=== PATIENT | female | born 1945 | race American Indian/Alaskan Native ===

== ENCOUNTER 2017-01-14 09:36 | Inpatient (IN) | payer MEDICARE, OTHER ==
--- NOTE | 2017-01-14 10:22 | XRay Report ---
AP CHEST: HISTORY: Shortness of breath AP view of the chest demonstrates a normal mediastinal and cardiac contour with clear lungs and normal bony and soft tissue structures. IMPRESSION: Unremarkable AP chest.
[2017-01-14] MEDS ORDERED: NACL 0.9% 1000 ML 1,000 ML IV ONE ×2 (10:26→12:06)
[2017-01-14 10:55] LABS: Basophils % (Auto) 0.4 % (0.0-1.8); Eosinophils % (Auto) 0.7 % (0.0-4.3); Hematocrit 37.9 % (30.3-42.9); Hemoglobin 11.8 gm/dl (10.1-14.3); Mean Corpuscular HGB Conc 31 % (30-34); Mean Corpuscular Hemoglobin 28 pg (28-32); Mean Corpuscular Volume 91 fl (79-97); Platelet Count 319 K/mm3 (140-440); Red Blood Count 4.19 M/mm3 (3.65-5.03); White Blood Count 11.9 K/mm3 (4.5-11.0)
[2017-01-14 11:16] LABS: INR 0.88 (0.87-1.13)
[2017-01-14 11:17] LABS: Partial Thromboplastin Time 27.6 Sec. (24.2-36.6)
[2017-01-14 11:26] LABS: Anion Gap 24 mmol/L; BUN/Creatinine Ratio 22; Blood Urea Nitrogen 26 mg/dL (7-17); Calcium 9.4 mg/dL (8.4-10.2); Carbon Dioxide 19 mmol/L (22-30); Chloride 103.1 mmol/L (98-107); Glucose 144 mg/dL (65-100); Potassium 4.6 mmol/L (3.6-5.0); Sodium 141 mmol/L (137-145)
[2017-01-14 11:33] LABS: Creatine Kinase MB 3.2 ng/mL (0.0-4.0)
[2017-01-14 11:36] LABS: Alanine Aminotransferase 8 units/L (7-56); Albumin 4.3 g/dL (3.9-5); Albumin/Globulin Ratio 1.3 %; Alkaline Phosphatase 83 units/L (35-129); Creatine Kinase 170 units/L (30-135); Total Protein 7.5 g/dL (6.3-8.2)
[2017-01-14 11:38] LABS: Bilirubin,Direct < 0.2 mg/dL (0-0.2)
[2017-01-14] MEDS ORDERED: NACL ONE (12:16)
--- NOTE | 2017-01-14 12:56 | Emergency Department Report ---
ED General Adult HPI - General Chief complaint: Dyspnea/Respdistress Stated complaint: AMBROSE Time Seen by Provider: 01/14/17 10:07 Source: patient, family, EMS Mode of arrival: Stretcher Limitations: No Limitations - History of Present Illness Initial comments: The patient states that she has a history of asthma and that her shortness of breath began this morning. She was felt to be frankly wheezing by paramedics who transported her after giving her 10 mg of albuterol via nebulizer, 2 g of mag and 125 of Solu-Medrol. She arrived at the hospital stating that She has never been to the hospital except for childbirth. It looks like she came to the emergency department once but was not seen it appears. In any case she has persistent wheezing. She denies chest pain fever chills or cough. She states that she was fine yesterday. I would speculate that the patient has a tendency to minimize her symptoms as it appears she still clearly does not want to stay in the hospital. However, she is noted to have persistent wheezing and a heart rate in the 120s. -: hour(s) Severity scale (0 -10): 0 Associated Symptoms: denies other symptoms, shortness of breath Treatments Prior to Arrival: none - Related Data Allergies Allergy/AdvReac Type Severity Reaction Status Date / Time No Known Allergies Allergy Unverified 12/23/15 14:21 ED Review of Systems ROS: Stated complaint: AMBROSE Other details as noted in HPI Constitutional: denies: chills, fever Eyes: denies: eye pain, eye discharge, vision change ENT: denies: ear pain, throat pain Respiratory: shortness of breath, wheezing. denies: cough Cardiovascular: denies: chest pain, palpitations Endocrine: no symptoms reported Gastrointestinal: denies: abdominal pain, nausea, diarrhea Genitourinary: denies: urgency, dysuria, discharge Musculoskeletal: denies: back pain, joint swelling, arthralgia Skin: denies: rash, lesions Neurological: denies: headache, weakness, paresthesias Psychiatric: denies: anxiety, depression Hematological/Lymphatic: denies: easy bleeding, easy bruising ED Past Medical Hx - Past Medical History Hx Hypertension: Yes Hx Diabetes: Yes Hx Asthma: Yes Additional medical history: chronic back pain - Social History Smoking Status: Never Smoker Substance Use Type: None ED Physical Exam - General Limitations: No Limitations General appearance: alert, in no apparent distress - Head Head exam: Present: atraumatic, normocephalic - Eye Eye exam: Present: normal appearance. Absent: scleral icterus - ENT ENT exam: Present: mucous membranes moist - Neck Neck exam: Present: normal inspection. Absent: tenderness, meningismus - Respiratory Respiratory exam: Present: wheezes (bilateral). Absent: respiratory distress, accessory muscle use, decreased breath sounds - Cardiovascular Cardiovascular Exam: Present: normal rhythm, tachycardia. Absent: systolic murmur, diastolic murmur, rubs, gallop - GI/Abdominal GI/Abdominal exam: Present: soft, normal bowel sounds. Absent: distended, tenderness, guarding, rebound, rigid - Extremities Exam Extremities exam: Present: normal inspection - Back Exam Back exam: Present: normal inspection. Absent: CVA tenderness (R), CVA tenderness (L) - Neurological Exam Neurological exam: Present: alert, oriented X3, CN II-XII intact. Absent: motor sensory deficit - Psychiatric Psychiatric exam: Present: normal affect, normal mood - Skin Skin exam: Present: warm, dry, intact, normal color. Absent: rash ED Course Vital Signs 01/14/17 01/14/17 01/14/17 09:53 09:54 13:53 Pulse Rate 133 H Pulse Rate [ 123 H Anterior Bilateral Throughout] Respiratory 25 H 16 Rate Respiratory 22 Rate [Anterior Bilateral Throughout] Blood Pressure 127/55 [Left] O2 Sat by Pulse 96 96 Oximetry 01/14/17 14:33 Pulse Rate Pulse Rate [ 122 H Anterior Bilateral Throughout] Respiratory Rate Respiratory 20 Rate [Anterior Bilateral Throughout] Blood Pressure [Left] O2 Sat by Pulse Oximetry - Reevaluation(s) Reevaluation #1: The patient's tachycardia might be related to beta agonists, I decided to broaden her workup to include a lactic acid and a D dimer. Both CTs were substantially positive. Therefore I decided to obtain a CT angio and study of her abdomen and pelvis. Results are yet pending. She was treated with empiric antibiotics for an unknown source infection. Urinalysis is pending. 01/14/17 12:57 ED Medical Decision Making - Lab Data Result diagrams: 01/14/17 10:41 01/14/17 10:41 Laboratory Results - last 24 hr 01/14/17 01/14/17 01/14/17 10:41 10:41 10:41 WBC 11.9 H RBC 4.19 Hgb 11.8 Hct 37.9 MCV 91 MCH 28 MCHC 31 RDW 14.0 Plt Count 319 Lymph % (Auto) 6.8 L [place] % (Auto) 4.7 Eos % (Auto) 0.7 Baso % (Auto) 0.4 Lymph # 0.8 L [place] # 0.6 Eos # 0.1 Baso # 0.0 Seg Neutrophils % 87.4 H Seg Neutrophils # 10.4 H PT 12.4 INR 0.88 APTT 27.6 D-Dimer 1256.11 H Sodium 141 Potassium 4.6 Chloride 103.1 Carbon Dioxide 19 L Anion Gap 24 BUN 26 H Creatinine 1.2 Estimated GFR 53 BUN/Creatinine Ratio 22 Glucose 144 H Lactic Acid Calcium 9.4 Magnesium Total Bilirubin Direct Bilirubin AST ALT Alkaline Phosphatase Total Creatine Kinase CK-MB (CK-2) CK-MB (CK-2) Rel Index Troponin T < 0.010 NT-Pro-B Natriuret Pep Total Protein Albumin Albumin/Globulin Ratio 01/14/17 01/14/17 10:41 10:41 WBC RBC Hgb Hct MCV MCH MCHC RDW Plt Count Lymph % (Auto) [place] % (Auto) Eos % (Auto) Baso % (Auto) Lymph # [place] # Eos # Baso # Seg Neutrophils % Seg Neutrophils # PT INR APTT D-Dimer Sodium Potassium Chloride Carbon Dioxide Anion Gap BUN Creatinine Estimated GFR BUN/Creatinine Ratio Glucose Lactic Acid 3.40 H* Calcium Magnesium 2.90 H Total Bilirubin 0.20 Direct Bilirubin < 0.2 AST 17 ALT 8 Alkaline Phosphatase 83 Total Creatine Kinase 170 H CK-MB (CK-2) 3.2 CK-MB (CK-2) Rel Index 1.8 Troponin T NT-Pro-B Natriuret Pep 71.67 Total Protein 7.5 Albumin 4.3 Albumin/Globulin Ratio 1.3 - EKG Data -: EKG Interpreted by Me EKG shows normal: sinus rhythm, axis, intervals, QRS complexes, ST-T waves Rate: tachycardia - EKG Data Interpretation: nonspecific ST-T wave slime, other (somewhat low voltage) - Radiology Data Radiology results: report reviewed interpreted by me: Chest x-ray shows no acute process CT studies were normal. Critical Care Time: Yes Critical care time in (mins) excluding proc time.: 60 Critical care attestation.: If time is entered above; I have spent that time in minutes in the direct care of this critically ill patient, excluding procedure time. ED Disposition Clinical Impression: Elevated d-dimer, Elevated lactic acid level Status asthmaticus Qualifiers: Asthma severity: severe Asthma persistence: persistent Qualified Code(s): J45.52 - Severe persistent asthma with status asthmaticus Disposition: OP ADMIT IP TO THIS HOSP Is pt being admited?: Yes Does the pt Need Aspirin: Yes Condition: Stable Referrals: PEDRO LUIS CORONADO MD [Primary Care Provider] - 3-5 Days Time of Disposition: 14:52
[2017-01-14] MEDS ORDERED: VANCOMYCIN PHARMACY TO DOSE IV SCH (13:00)
[2017-01-14] MEDS ORDERED: ZOSYN/NS 3.375GM/50ML 3.375 GM/50 ML BAG IV SCH (13:00)
[2017-01-14] MEDS ORDERED: DUONEB *Not for PRN Use IH ONE (13:33)
[2017-01-14 13:44] LABS: Bilirubin,Urine NEG (Negative); Blood,Urine NEG (Negative); Ketones,Urine NEG (Negative); Leukocyte Esterase,Urine TR (Negative); Mucus,Urine FEW /HPF; Nitrite,Urine NEG (Negative); Protein,Urine <15 mg/dL mg/dL (Negative); Urobilinogen,Urine < 2.0 mg/dL (<2.0)
[2017-01-14] MEDS: ZOSYN/NS 3.375GM/50ML 3.375 GM/50 ML BAG IV SCH ×2 (13:44→21:51)
--- NOTE | 2017-01-14 13:49 | Cat Scan Report ---
CTA CHEST: History: Difficulty in breathing. Technique: Helical CT following IV contrast. Pulmonary embolus protocol. Sagittal and coronal reformatted images. Rotational MIP images. Findings: Contrast bolus is satisfactory. No pulmonary embolus is identified. The thyroid gland, tracheobronchial tree, esophagus, heart, pericardium, mediastinal vessels, lung gray and bony thorax are unremarkable. Impression: No evidence for pulmonary embolus. Unremarkable CT chest with contrast.
--- NOTE | 2017-01-14 13:50 | Cat Scan Report ---
CT SCAN OF THE ABDOMEN AND PELVIS WITH CONTRAST: HISTORY: Difficulty in breathing, elevated lactic acid and d-dimer. TECHNIQUE: Helical CT in 1.25mm intervals following IV contrast. Sagittal and coronal reconstructions. FINDINGS: The liver is normal in size and is without focal defect. No gallstones or biliary dilatation are noted. The spleen and pancreas demonstrate a normal size and attenuation with no evidence of abnormal mass. The kidneys are normal in size and position with no evidence of hydronephrosis or mass. The adrenal glands are normal. There is no intestinal obstruction or ascites. Normal appendix. The abdominal aorta is normal. The uterus and adnexa are within normal limits. There is no evidence of peritoneal air or fluid. There is no evidence of any abnormal masses or fluid collections within the pelvis. No adenopathy is identified. The bladder is normal. IMPRESSION: Unremarkable CT scan of the abdomen and pelvis with contrast. No acute process is noted.
[2017-01-14 14:10] LABS: ISTAT Base Excess -11; ISTAT HCO3 15.8; ISTAT PCO2 32.2 (35-45); ISTAT PO2 48 (80-105); ISTAT SO2 80; ISTAT TCO2 17
[2017-01-14] MEDS: VANCOMYCIN 1,500 MG in NACL 0.9% 500 ML 500 ML IV SCH (14:21)
[2017-01-14] MEDS ORDERED: BABY ASPIRIN PO ONE (14:54)
--- NOTE | 2017-01-14 16:19 | History and Physical Report ---
History of Present Illness Date of examination: 01/14/17 Date of admission: 01/14/17 Chief complaint: Increasing SOB and wheezing for 1 day History of present illness: History of Present Illness: 71 y/o female with pmh of HTn t2dm LBP and Asthma comes in for increasing SOB and wheezing since AM.Cough productive of mucoid sputm.No fever or chills.No intubations in the past.No exacerbating or relieving factors.Notrelieved by home inhalers.Came by EMS.Persistent wheezing in spite of neb treatments in ER - Past Medical History Hx Hypertension: Yes Hx Diabetes: Yes Hx Asthma: Yes Additional medical history: chronic back pain - Social History Smoking Status: Never Smoker Substance Use Type: None Surg Hx N/A Fam Hx Htn Review of Systems Stated complaint: AMBROSE Other details as noted in HPI Constitutional: denies: chills, fever Eyes: denies: eye pain, eye discharge, vision change ENT: denies: ear pain, throat pain Respiratory: shortness of breath, wheezing. denies: cough Cardiovascular: denies: chest pain, palpitations Endocrine: no symptoms reported Gastrointestinal: denies: abdominal pain, nausea, diarrhea Genitourinary: denies: urgency, dysuria, discharge Musculoskeletal: denies: back pain, joint swelling, arthralgia Skin: denies: rash, lesions Neurological: denies: headache, weakness, paresthesias Psychiatric: denies: anxiety, depression Hematological/Lymphatic: denies: easy bleeding, easy bruising Medications and Allergies Allergies Allergy/AdvReac Type Severity Reaction Status Date / Time No Known Allergies Allergy Unverified 12/23/15 14:21 Active Meds: Active Medications Sodium Chloride (Nacl 0.9% 1000 Ml) 1,000 mls @ 125 mls/hr IV ONCE ONE Stop: 01/14/17 18:25 Last Admin: 01/14/17 11:18 Dose: 125 mls/hr Piperacillin Sod/Tazobactam Sod (Zosyn/Ns 3.375gm/50ml) 3.375 gm in 50 mls @ 100 mls/hr IV Q8H [facility] Last Admin: 01/14/17 13:44 Dose: 100 mls/hr Vancomycin HCl 1,500 mg/ (Sodium Chloride) 515 mls @ 257.5 mls/hr IV Q24H [facility] Last Admin: 01/14/17 14:21 Dose: 257.5 mls/hr Vancomycin HCl (Vancomycin Pharmacy To Dose) 1 each IV PKCONSULT JOSE PRN Reason: Protocol Exam - Physical Exam Narrative exam: In mild distress - Constitutional Vitals: Temp Pulse Resp BP Pulse Ox 122 H 20 127/55 96 01/14/17 14:33 01/14/17 14:33 01/14/17 09:53 01/14/17 09:54 General appearance: Present: mild distress, well-nourished - EENT Eyes: Present: PERRL ENT: hearing intact, clear oral mucosa - Neck Neck: Present: supple, normal ROM - Respiratory Respiratory effort: normal Respiratory: bilateral: CTA, wheezing - Cardiovascular Heart rate: 80 Rhythm: regular Heart Sounds: Present: S1 & S2. Absent: rub, click - Extremities Extremities: no ischemia, pulses intact, pulses symmetrical, No edema Peripheral Pulses: within normal limits - Abdominal General gastrointestinal: Present: soft, non-tender, non-distended, normal bowel sounds Female genitourinary: Present: normal - Rectal Rectal Exam: deferred - Integumentary Integumentary: Present: clear, warm, dry - Musculoskeletal Musculoskeletal: gait normal, strength equal bilaterally - Psychiatric Psychiatric: appropriate mood/affect, intact judgment & insight - Neurologic Neurologic: CNII-XII intact, moves all extremities - Allied Health Allied health notes reviewed: nursing, case management Results - Labs CBC & Chem 7: 01/15/17 04:37 01/15/17 04:37 Labs: Laboratory Last Values WBC 11.9 K/mm3 (4.5-11.0) H 01/14/17 10:41 RBC 4.19 M/mm3 (3.65-5.03) 01/14/17 10:41 Hgb 11.8 gm/dl (10.1-14.3) 01/14/17 10:41 Hct 37.9 % (30.3-42.9) 01/14/17 10:41 MCV 91 fl (79-97) 01/14/17 10:41 MCH 28 pg (28-32) 01/14/17 10:41 MCHC 31 % (30-34) 01/14/17 10:41 RDW 14.0 % (13.2-15.2) 01/14/17 10:41 Plt Count 319 K/mm3 (140-440) 01/14/17 10:41 Lymph % (Auto) 6.8 % (13.4-35.0) L 01/14/17 10:41 [place] % (Auto) 4.7 % (0.0-7.3) 01/14/17 10:41 Eos % (Auto) 0.7 % (0.0-4.3) 01/14/17 10:41 Baso % (Auto) 0.4 % (0.0-1.8) 01/14/17 10:41 Lymph # 0.8 K/mm3 (1.2-5.4) L 01/14/17 10:41 [place] # 0.6 K/mm3 (0.0-0.8) 01/14/17 10:41 Eos # 0.1 K/mm3 (0.0-0.4) 01/14/17 10:41 Baso # 0.0 K/mm3 (0.0-0.1) 01/14/17 10:41 Seg Neutrophils % 87.4 % (40.0-70.0) H 01/14/17 10:41 Seg Neutrophils # 10.4 K/mm3 (1.8-7.7) H 01/14/17 10:41 PT 12.4 Sec. (12.2-14.9) 01/14/17 10:41 INR 0.88 (0.87-1.13) 01/14/17 10:41 APTT 27.6 Sec. (24.2-36.6) 01/14/17 10:41 D-Dimer 1256.11 ng/mlDDU (0-234) H 01/14/17 10:41 POC ABG pH 7.300 (7.35-7.45) L 01/14/17 13:49 POC ABG pCO2 32.2 (35-45) L 01/14/17 13:49 POC ABG pO2 48 (80-105) L 01/14/17 13:49 POC ABG HCO3 15.8 01/14/17 13:49 POC ABG Total CO2 17 01/14/17 13:49 POC ABG O2 Sat 80 01/14/17 13:49 POC ABG Base Excess -11 01/14/17 13:49 FiO2 35 % 01/14/17 13:49 Sodium 141 mmol/L (137-145) 01/14/17 10:41 Potassium 4.6 mmol/L (3.6-5.0) 01/14/17 10:41 Chloride 103.1 mmol/L (98-107) 01/14/17 10:41 Carbon Dioxide 19 mmol/L (22-30) L 01/14/17 10:41 Anion Gap 24 mmol/L 01/14/17 10:41 BUN 26 mg/dL (7-17) H 01/14/17 10:41 Creatinine 1.2 mg/dL (0.7-1.2) 01/14/17 10:41 Estimated GFR 53 ml/min 01/14/17 10:41 BUN/Creatinine Ratio 22 % 01/14/17 10:41 Glucose 144 mg/dL (65-100) H 01/14/17 10:41 Lactic Acid 3.40 mmol/L (0.7-2.0) H* 01/14/17 10:41 Calcium 9.4 mg/dL (8.4-10.2) 01/14/17 10:41 Magnesium 2.90 mg/dL (1.7-2.3) H 01/14/17 10:41 Total Bilirubin 0.20 mg/dL (0.1-1.2) 01/14/17 10:41 Direct Bilirubin < 0.2 mg/dL (0-0.2) 01/14/17 10:41 AST 17 units/L (5-40) 01/14/17 10:41 ALT 8 units/L (7-56) 01/14/17 10:41 Alkaline Phosphatase 83 units/L (35-129) 01/14/17 10:41 Total Creatine Kinase 170 units/L (30-135) H 01/14/17 10:41 CK-MB (CK-2) 3.2 ng/mL (0.0-4.0) 01/14/17 10:41 CK-MB (CK-2) Rel Index 1.8 (0-4) 01/14/17 10:41 Troponin T < 0.010 ng/mL (0.00-0.029) 01/14/17 10:41 NT-Pro-B Natriuret Pep 71.67 pg/mL (0-900) 01/14/17 10:41 Total Protein 7.5 g/dL (6.3-8.2) 01/14/17 10:41 Albumin 4.3 g/dL (3.9-5) 01/14/17 10:41 Albumin/Globulin Ratio 1.3 % 01/14/17 10:41 Urine Color Yellow (Yellow) 01/14/17 13:25 Urine Turbidity Clear (Clear) 01/14/17 13:25 Urine pH 5.0 (5.0-7.0) 01/14/17 13:25 Ur Specific [place] 1.016 (1.003-1.030) 01/14/17 13:25 Urine Protein <15 mg/dl mg/dL (Negative) 01/14/17 13:25 Urine Glucose (UA) Neg mg/dL (Negative) 01/14/17 13:25 Urine Ketones Neg mg/dL (Negative) 01/14/17 13:25 Urine Blood Neg (Negative) 01/14/17 13:25 Urine Nitrite Neg (Negative) 01/14/17 13:25 Urine Bilirubin Neg (Negative) 01/14/17 13:25 Urine Urobilinogen < 2.0 mg/dL (<2.0) 01/14/17 13:25 Ur Leukocyte Esterase Tr (Negative) 01/14/17 13:25 Urine WBC (Auto) 1.0 /HPF (0.0-6.0) 01/14/17 13:25 Urine RBC (Auto) 2.0 /HPF (0.0-6.0) 01/14/17 13:25 U Epithel Cells (Auto) 1.0 /HPF (0-13.0) 01/14/17 13:25 Urine Mucus Few /HPF 01/14/17 13:25 Short CBC 01/14/17 01/15/17 Range/Units 10:41 04:37 WBC 11.9 H 11.1 H (4.5-11.0) K/mm3 Hgb 11.8 10.6 (10.1-14.3) gm/dl Hct 37.9 33.0 (30.3-42.9) % Plt Count 319 292 (140-440) K/mm3 BMP 01/14/17 01/15/17 10:41 04:37 Sodium 141 141 Potassium 4.6 5.2 H Chloride 103.1 108.0 H Carbon Dioxide 19 L 21 L BUN 26 H 27 H Creatinine 1.2 1.2 Glucose 144 H 134 H Calcium 9.4 9.0 Cardiac Enzymes 01/14/17 01/14/17 Range/Units 10:41 10:41 Total Creatine Kinase 170 H (30-135) units/L CK-MB (CK-2) 3.2 (0.0-4.0) ng/mL Troponin T < 0.010 (0.00-0.029) ng/mL Liver Function 01/14/17 01/15/17 Range/Units 10:41 04:37 Total Bilirubin 0.20 0.20 (0.1-1.2) mg/dL Direct Bilirubin < 0.2 (0-0.2) mg/dL AST 17 17 (5-40) units/L ALT 8 9 (7-56) units/L Alkaline Phosphatase 83 73 (35-129) units/L Albumin 4.3 3.8 L (3.9-5) g/dL Urine 01/14/17 Range/Units 13:25 Urine Color Yellow (Yellow) Urine pH 5.0 (5.0-7.0) Ur Specific [place] 1.016 (1.003-1.030) Urine Protein <15 mg/dl (Negative) mg/dL Urine Glucose (UA) Neg (Negative) mg/dL - Imaging and Cardiology EKG: report reviewed (NSR) Chest x-ray: report reviewed (NAF) CT scan - chest: report reviewed (NAF No PE) Assessment and Plan Advance Directives: Yes (Full code) VTE prophylaxis?: Chemical Plan of care discussed with patient/family: Yes - Patient Problems (1) Acute respiratory failure with hypoxia Current Visit: Yes Status: Acute Plan to address problem: Patient hypoxic.NIPPV as required (2) Status asthmaticus Current Visit: Yes Status: Acute Qualifiers: Asthma severity: severe Asthma persistence: persistent Qualified Code(s) : J45.52 - Severe persistent asthma with status asthmaticus Plan to address problem: IV solumedrol Neb treatments q6 RTC and q3 prn and IV Levaquin (3) Elevated lactic acid level Current Visit: Yes Status: Acute Plan to address problem: Septic?? IV fluids and IV Levaquin for now Not Hypotensive (4) T2DM (type 2 diabetes mellitus) Current Visit: Yes Status: Chronic Qualifiers: Diabetes mellitus complication status: without complication Plan to address problem: Not on any meds.Coverage for now.Check A1c. Add Metformin (5) Lumbago Current Visit: Yes Status: Chronic Qualifiers: Chronicity: chronic Plan to address problem: Analgesics as necessary (6) DVT prophylaxis Current Visit: Yes Status: Acute Plan to address problem: on Lovenox
[2017-01-14] MEDS ORDERED: DULCOLAX PR PRN (16:20)
[2017-01-14] MEDS ORDERED: ZOFRAN IV PRN (16:20)
[2017-01-14] MEDS ORDERED: MILK OF MAGNESIA PO PRN (16:20)
[2017-01-14] MEDS ORDERED: TYLENOL PO PRN (16:20)
[2017-01-14] MEDS ORDERED: MORPHINE IV PRN (16:20)
[2017-01-14] MEDS ORDERED: PERCOCET 5/325 PO PRN (16:20)
[2017-01-14] MEDS ORDERED: DUONEB *Not for PRN Use IH (16:22)
[2017-01-14] MEDS ORDERED: PROVENTIL IH PRN (16:25)
[2017-01-14] MEDS: DUONEB *Not for PRN Use IH SCH ×2 (16:44→21:19)
[2017-01-14] MEDS: LEVAQUIN 750MG/150ML 750 MG/150 ML BAG IV SCH ×2 (16:54→18:43)
[2017-01-14] MEDS ORDERED: LEVAQUIN 750MG/150ML 750 MG/150 ML BAG IV SCH (17:00)
[2017-01-14] MEDS: PEPCID IV SCH (21:50)
[2017-01-14] MEDS ORDERED: PEPCID IV SCH (22:00)
[2017-01-15] MEDS: DUONEB *Not for PRN Use IH SCH ×4 (03:36→20:44)
[2017-01-15] MEDS: ZOSYN/NS 3.375GM/50ML 3.375 GM/50 ML BAG IV SCH ×3 (04:53→22:12)
[2017-01-15 05:12] LABS: Hemoglobin 10.6 gm/dl (10.1-14.3); Mean Corpuscular HGB Conc 32 % (30-34); Mean Corpuscular Hemoglobin 28 pg (28-32); Mean Corpuscular Volume 89 fl (79-97); Platelet Count 292 K/mm3 (140-440); Red Blood Count 3.73 M/mm3 (3.65-5.03); Red Cell Distribution Width 13.5 % (13.2-15.2); White Blood Count 11.1 K/mm3 (4.5-11.0)
[2017-01-15 05:33] LABS: Albumin 3.8 g/dL (3.9-5); Albumin/Globulin Ratio 1.3 %; Bilirubin,Total 0.2 mg/dL (0.1-1.2); Potassium 5.2 mmol/L (3.6-5.0); Total Protein 6.8 g/dL (6.3-8.2)
[2017-01-15] MEDS ORDERED: GLUCOPHAGE PO SCH (08:00)
[2017-01-15 08:25] LABS: Anisocytosis 1+; Basophils % (Manual) 0 % (0.0-1.8); Blastocytes % (Manual) 0 %; Eosinophils % (Manual) 0 % (0.0-4.3)
[2017-01-15] MEDS ORDERED: KIONEX PO ONE (08:25)
[2017-01-15 08:26] LABS: Hypochromasia Few
[2017-01-15 08:27] LABS: Diff Status Complete; Platelet Estimate Consistent w Auto
[2017-01-15] MEDS: NOVOLOG SUB-Q SCH ×4 (08:44→23:31)
[2017-01-15] MEDS ORDERED: LOVENOX SUB-Q SCH (10:00)
[2017-01-15] MEDS: LOVENOX SUB-Q SCH (10:33)
[2017-01-15] MEDS: PEPCID IV SCH ×2 (10:34→22:10)
[2017-01-15] MEDS: VANCOMYCIN 1,500 MG in NACL 0.9% 500 ML 500 ML IV SCH (13:49)
--- NOTE | 2017-01-15 14:17 | Progress Note ---
Assessment and Plan Assessment and plan: Patient is a 71-year-old female with history of asthma who presents to the hospital with complaint of shortness of breath that began this a.m. prior to admission. The patient reports that she was not usual state of health and has not been hospitalized ever in the past before. She denies any sick contacts she states that she's been around people who have been coughing and hacking. She denies any prior admissions as noted above. She also denies any fever nausea vomiting or diarrhea she denies any chest pain. On admission she was noted to have persistent wheezing with a heart rate in the 120s. Acute hypoxic respiratory failure * Likely secondary to asthma exacerbation. Continue present treatment as noted continue IV Solu-Medrol * We'll continue Zosyn in case there is underlying bronchitis * discontinue vancomycin Asthma exacerbation with status asthmaticus on admission * Nebs, LABA, LIZETH. Taper steroids. Lactic acidosis * Improvement continue gentle hydration Hyperkalemia * We'll give Kayexalate and recheck in a.m. SIRS * Likely secondary to respiratory failure no organ dysfunction noted Elevated d-dimer * No pulmonary embolism this could be secondary to the asthma exacerbation. Nonetheless we'll check an ultrasound to rule out DVT Metabolic acidosis * Supportive care with IV fluids we'll discontinue metformin * Type 2 diabetes mellitus * Sliding scale [place] Appropriate pain control * DVT/ GI prophylaxis Plan of care discussed with patient and family and they're agreeable treatment. History Interval history: Patient seen and examined in no acute distress she continues to wheeze but denies any chest pain, nausea vomiting diarrhea still with some shortness of breath denies any fever. Denies any recent sick contacts. Hospitalist Physical - Physical exam Narrative exam: VITAL SIGNS: Reviewed. GENERAL: The patient appeared well nourished and normally developed. Vital signs as documented. HEAD: No signs of head trauma. EYES: Pupils are equal. Extraocular motions intact. EARS: Hearing grossly intact. MOUTH: Oropharynx is normal. NECK: No adenopathy, no JVD. CHEST: Chest with wheeze and bilateral breath sounds expiratory moderate inspiratory CARDIAC: Regular rate and rhythm. S1 and S2, without murmurs, gallops, or rubs. VASCULAR: No Edema. Peripheral pulses normal and equal in all extremities. ABDOMEN: Soft, without detectable tenderness. No sign of distention. No rebound or guarding, and no masses palpated. Bowel Sounds normal. MUSCULOSKELETAL: Good range of motion of all major joints. Extremities without clubbing, cyanosis or edema. NEUROLOGIC EXAM: Alert and oriented x 3. No focal sensory or strength deficits. Speech normal. Follows commands. PSYCHIATRIC: Mood normal. SKIN: No rash or lesions. - Constitutional Vitals: Temp Pulse Resp BP Pulse Ox 98.7 F 114 H 20 128/72 95 01/15/17 07:35 01/15/17 07:35 01/15/17 07:35 01/15/17 07:35 01/15/17 07:35 General appearance: Present: mild distress, well-nourished Results - Labs CBC & Chem 7: 01/15/17 04:37 01/15/17 04:37 Labs: Laboratory Last Values WBC 11.1 K/mm3 (4.5-11.0) H 01/15/17 04:37 RBC 3.73 M/mm3 (3.65-5.03) 01/15/17 04:37 Hgb 10.6 gm/dl (10.1-14.3) 01/15/17 04:37 Hct 33.0 % (30.3-42.9) 01/15/17 04:37 MCV 89 fl (79-97) 01/15/17 04:37 MCH 28 pg (28-32) 01/15/17 04:37 MCHC 32 % (30-34) 01/15/17 04:37 RDW 13.5 % (13.2-15.2) 01/15/17 04:37 Plt Count 292 K/mm3 (140-440) 01/15/17 04:37 Lymph % (Auto) 6.8 % (13.4-35.0) L 01/14/17 10:41 [place] % (Auto) 4.7 % (0.0-7.3) 01/14/17 10:41 Eos % (Auto) 0.7 % (0.0-4.3) 01/14/17 10:41 Baso % (Auto) 0.4 % (0.0-1.8) 01/14/17 10:41 Lymph # 0.8 K/mm3 (1.2-5.4) L 01/14/17 10:41 [place] # 0.6 K/mm3 (0.0-0.8) 01/14/17 10:41 Eos # 0.1 K/mm3 (0.0-0.4) 01/14/17 10:41 Baso # 0.0 K/mm3 (0.0-0.1) 01/14/17 10:41 Add Manual Diff Complete 01/15/17 04:37 Total Counted 100 01/15/17 04:37 Seg Neutrophils % [place] 01/15/17 04:37 Seg Neuts % (Manual) 69.0 % (40.0-70.0) 01/15/17 04:37 Band Neutrophils % 11.0 % 01/15/17 04:37 Lymphocytes % (Manual) 16.0 % (13.4-35.0) 01/15/17 04:37 Reactive Lymphs % (Man) 0 % 01/15/17 04:37 Monocytes % (Manual) 4.0 % (0.0-7.3) 01/15/17 04:37 Eosinophils % (Manual) 0 % (0.0-4.3) 01/15/17 04:37 Basophils % (Manual) 0 % (0.0-1.8) 01/15/17 04:37 Metamyelocytes % 0 % 01/15/17 04:37 Myelocytes % 0 % 01/15/17 04:37 Promyelocytes % 0 % 01/15/17 04:37 Blast Cells % 0 % 01/15/17 04:37 Nucleated RBC % Not Reportable 01/15/17 04:37 Seg Neutrophils # 10.4 K/mm3 (1.8-7.7) H 01/14/17 10:41 Seg Neutrophils # Man 7.7 K/mm3 (1.8-7.7) 01/15/17 04:37 Band Neutrophils # 1.2 K/mm3 01/15/17 04:37 Lymphocytes # (Manual) 1.8 K/mm3 (1.2-5.4) 01/15/17 04:37 Abs React Lymphs (Man) 0.0 K/mm3 01/15/17 04:37 Monocytes # (Manual) 0.4 K/mm3 (0.0-0.8) 01/15/17 04:37 Eosinophils # (Manual) 0.0 K/mm3 (0.0-0.4) 01/15/17 04:37 Basophils # (Manual) 0.0 K/mm3 (0.0-0.1) 01/15/17 04:37 Metamyelocytes # 0.0 K/mm3 01/15/17 04:37 Myelocytes # 0.0 K/mm3 01/15/17 04:37 Promyelocytes # 0.0 K/mm3 01/15/17 04:37 Blast Cells # 0.0 K/mm3 01/15/17 04:37 WBC Morphology Not Reportable 01/15/17 04:37 Hypersegmented Neuts Not Reportable 01/15/17 04:37 Hyposegmented Neuts Not Reportable 01/15/17 04:37 Hypogranular Neuts Not Reportable 01/15/17 04:37 Smudge Cells Not Reportable 01/15/17 04:37 Toxic Granulation Not Reportable 01/15/17 04:37 Toxic Vacuolation Not Reportable 01/15/17 04:37 Dohle Bodies Not Reportable 01/15/17 04:37 Pelger-Huet Anomaly Not Reportable 01/15/17 04:37 Seth Rods Not Reportable 01/15/17 04:37 Platelet Estimate Consistent w auto 01/15/17 04:37 Clumped Platelets Not Reportable 01/15/17 04:37 Plt Clumps, EDTA Not Reportable 01/15/17 04:37 Large Platelets Not Reportable 01/15/17 04:37 Giant Platelets Not Reportable 01/15/17 04:37 Platelet Satelliting Not Reportable 01/15/17 04:37 Plt Morphology Comment Not Reportable 01/15/17 04:37 RBC Morphology Not Reportable 01/15/17 04:37 Dimorphic RBCs Not Reportable 01/15/17 04:37 Polychromasia Not Reportable 01/15/17 04:37 Hypochromasia Few 01/15/17 04:37 Poikilocytosis Not Reportable 01/15/17 04:37 Anisocytosis 1+ 01/15/17 04:37 Microcytosis Not Reportable 01/15/17 04:37 Macrocytosis Not Reportable 01/15/17 04:37 Spherocytes Not Reportable 01/15/17 04:37 Pappenheimer Bodies Not Reportable 01/15/17 04:37 Sickle Cells Not Reportable 01/15/17 04:37 Target Cells Not Reportable 01/15/17 04:37 Tear Drop Cells Not Reportable 01/15/17 04:37 Ovalocytes Not Reportable 01/15/17 04:37 Helmet Cells Not Reportable 01/15/17 04:37 Hernandez-Bernice Bodies Not Reportable 01/15/17 04:37 [place] Rings Not Reportable 01/15/17 04:37 [place] Cells Not Reportable 01/15/17 04:37 Bite Cells Not Reportable 01/15/17 04:37 Crenated Cell Not Reportable 01/15/17 04:37 Elliptocytes Not Reportable 01/15/17 04:37 Acanthocytes (Spur) Not Reportable 01/15/17 04:37 Rouleaux Not Reportable 01/15/17 04:37 Hemoglobin C Crystals Not Reportable 01/15/17 04:37 Schistocytes Not Reportable 01/15/17 04:37 Malaria parasites Not Reportable 01/15/17 04:37 [place] Bodies Not Reportable 01/15/17 04:37 Hem Pathologist Commnt No 01/15/17 04:37 PT 12.4 Sec. (12.2-14.9) 01/14/17 10:41 INR 0.88 (0.87-1.13) 01/14/17 10:41 APTT 27.6 Sec. (24.2-36.6) 01/14/17 10:41 D-Dimer 1256.11 ng/mlDDU (0-234) H 01/14/17 10:41 POC ABG pH 7.300 (7.35-7.45) L 01/14/17 13:49 POC ABG pCO2 32.2 (35-45) L 01/14/17 13:49 POC ABG pO2 48 (80-105) L 01/14/17 13:49 POC ABG HCO3 15.8 01/14/17 13:49 POC ABG Total CO2 17 01/14/17 13:49 POC ABG O2 Sat 80 01/14/17 13:49 POC ABG Base Excess -11 01/14/17 13:49 FiO2 35 % 01/14/17 13:49 Sodium 141 mmol/L (137-145) 01/15/17 04:37 Potassium 5.2 mmol/L (3.6-5.0) H 01/15/17 04:37 Chloride 108.0 mmol/L (98-107) H 01/15/17 04:37 Carbon Dioxide 21 mmol/L (22-30) L 01/15/17 04:37 Anion Gap 17 mmol/L 01/15/17 04:37 BUN 27 mg/dL (7-17) H 01/15/17 04:37 Creatinine 1.2 mg/dL (0.7-1.2) 01/15/17 04:37 Estimated GFR 53 ml/min 01/15/17 04:37 BUN/Creatinine Ratio 23 % 01/15/17 04:37 Glucose 134 mg/dL (65-100) H 01/15/17 04:37 POC Glucose 140 (70-105) H 01/15/17 12:34 Hemoglobin A1c 6.4 % (4-6) H 01/14/17 10:41 Lactic Acid 2.50 mmol/L (0.7-2.0) H* 01/15/17 08:56 Calcium 9.0 mg/dL (8.4-10.2) 01/15/17 04:37 Magnesium 2.90 mg/dL (1.7-2.3) H 01/14/17 10:41 Total Bilirubin 0.20 mg/dL (0.1-1.2) 01/15/17 04:37 Direct Bilirubin < 0.2 mg/dL (0-0.2) 01/14/17 10:41 AST 17 units/L (5-40) 01/15/17 04:37 ALT 9 units/L (7-56) 01/15/17 04:37 Alkaline Phosphatase 73 units/L (35-129) 01/15/17 04:37 Total Creatine Kinase 170 units/L (30-135) H 01/14/17 10:41 CK-MB (CK-2) 3.2 ng/mL (0.0-4.0) 01/14/17 10:41 CK-MB (CK-2) Rel Index 1.8 (0-4) 01/14/17 10:41 Troponin T < 0.010 ng/mL (0.00-0.029) 01/14/17 10:41 NT-Pro-B Natriuret Pep 71.67 pg/mL (0-900) 01/14/17 10:41 Total Protein 6.8 g/dL (6.3-8.2) 01/15/17 04:37 Albumin 3.8 g/dL (3.9-5) L 01/15/17 04:37 Albumin/Globulin Ratio 1.3 % 01/15/17 04:37 Urine Color Yellow (Yellow) 01/14/17 13:25 Urine Turbidity Clear (Clear) 01/14/17 13:25 Urine pH 5.0 (5.0-7.0) 01/14/17 13:25 Ur Specific [place] 1.016 (1.003-1.030) 01/14/17 13:25 Urine Protein <15 mg/dl mg/dL (Negative) 01/14/17 13:25 Urine Glucose (UA) Neg mg/dL (Negative) 01/14/17 13:25 Urine Ketones Neg mg/dL (Negative) 01/14/17 13:25 Urine Blood Neg (Negative) 01/14/17 13:25 Urine Nitrite Neg (Negative) 01/14/17 13:25 Urine Bilirubin Neg (Negative) 01/14/17 13:25 Urine Urobilinogen < 2.0 mg/dL (<2.0) 01/14/17 13:25 Ur Leukocyte Esterase Tr (Negative) 01/14/17 13:25 Urine WBC (Auto) 1.0 /HPF (0.0-6.0) 01/14/17 13:25 Urine RBC (Auto) 2.0 /HPF (0.0-6.0) 01/14/17 13:25 U Epithel Cells (Auto) 1.0 /HPF (0-13.0) 01/14/17 13:25 Urine Mucus Few /HPF 01/14/17 13:25 - Imaging and Cardiology Chest x-ray: image reviewed (no acute pathology) CT scan - chest: image reviewed (no pulmonary embolism)
[2017-01-15] MEDS ORDERED: HALDOL IM ONE ×2 (16:44→23:00)
[2017-01-16] MEDS: DUONEB *Not for PRN Use IH SCH ×3 (02:00→14:41)
[2017-01-16] MEDS: ZOSYN/NS 3.375GM/50ML 3.375 GM/50 ML BAG IV SCH (06:20)
[2017-01-16] MEDS: NOVOLOG SUB-Q SCH ×3 (08:42→18:08)
[2017-01-16 08:56] LABS: Hematocrit 34.1 % (30.3-42.9); Hemoglobin 11.4 gm/dl (10.1-14.3); Mean Corpuscular HGB Conc 33 % (30-34); Mean Corpuscular Hemoglobin 29 pg (28-32); Mean Corpuscular Volume 88 fl (79-97); Platelet Count 294 K/mm3 (140-440); Red Blood Count 3.88 M/mm3 (3.65-5.03); Red Cell Distribution Width 13.9 % (13.2-15.2); White Blood Count 11.1 K/mm3 (4.5-11.0)
[2017-01-16 09:13] LABS: Calcium 9.3 mg/dL (8.4-10.2); Chloride 107.7 mmol/L (98-107); Potassium 4.7 mmol/L (3.6-5.0)
[2017-01-16] MEDS: LOVENOX SUB-Q SCH (09:18)
[2017-01-16] MEDS ORDERED: PEPCID PO SCH (10:00)
[2017-01-16] MEDS ORDERED: ZOSYN/NS 4.5GM/100ML 4.5 GM/100 ML VIAL IV SCH (14:00)
--- NOTE | 2017-01-16 14:07 | Discharge Summary ---
Providers - Providers Date of Admission: 01/14/17 16:20 Date of discharge: 01/16/17 Attending physician: KATE GARCÍA Primary care physician: PEDRO LUIS CORONADO Hospitalization Condition: Stable Hospital course: Patient is a 71-year-old female with history of asthma who presents to the hospital with complaint of shortness of breath that began this a.m. prior to admission. The patient reports that she was not usual state of health and has not been hospitalized ever in the past before. She denies any sick contacts she states that she's been around people who have been coughing and hacking. She denies any prior admissions as noted above. She also denies any fever nausea vomiting or diarrhea she denies any chest pain. On admission she was noted to have persistent wheezing with a heart rate in the 120s. Acute hypoxic respiratory failure, o2 weaned off * Likely secondary to asthma exacerbation. Continue present treatment as noted continue IV Solu-Medrol * We'll continue Zosyn in case there is underlying bronchitis * discontinue vancomycin Asthma exacerbation with status asthmaticus on admission * Nebs, LABA, LIZETH. Taper steroids. Lactic acidosis * Improvement continue gentle hydration Hyperkalemia * We'll give Kayexalate and recheck in a.m. SIRS * Likely secondary to respiratory failure no organ dysfunction noted Elevated d-dimer * No pulmonary embolism this could be secondary to the asthma exacerbation. Nonetheless we'll check an ultrasound to rule out DVT Metabolic acidosis * Supportive care with IV fluids we'll discontinue metformin * Type 2 diabetes mellitus * Sliding scale Chronic back pains Appropriate pain control * DVT/ GI prophylaxis Plan of care discussed with patient Disposition: DC-01 TO HOME OR SELFCARE Time spent for discharge: 35 minutes Core Measure Documentation - Palliative Care Palliative Care/ Comfort Measures: Not Applicable - Core Measures Any of the following diagnoses?: none - VTE Discharge Requirements Deep Vein Thrombosis/Pulmonary Embolism Present on Admission: No Has pt received <5 days of overlap therapy or INR<2.0: No Anticoagulant overlap therapy prescribed at discharge: No Contraindication No Overlap Therapy order at DC: Not Indicated Exam - Physical Exam Narrative exam: GEN: WDWN, NAD, AWAKE, ALERT, ORIENTATED x 3 HEENT: NCAT, EOMI, PERRL, OP Clear NECK: supple, no adenopathy, no thyromegaly, no JVD CVS/HEART: RRR, NORMAL S1S2, NO JVD, pulses present bilaterally CHEST/LUNGS: exp wheezing, good bs, Symmetrical chest expansion, good air entry bilaterally GI/Abdomen: soft, NTND, good bowel sounds, no guarding or rebound /Bladder: no suprapubic tenderness, no CVA or paraspinal tenderness EXT/Skin: no c/c/e, no obvious rash MSK: FROM x 4 Neuro: CN 2-12 grossly intact, no new focal deficits Psych: calm - Constitutional Vitals: Temp Pulse Resp BP Pulse Ox 98.0 F 107 H 18 146/83 96 01/16/17 07:39 01/16/17 08:10 01/16/17 08:10 01/16/17 07:39 01/16/17 10:00 Plan Activity: other (no strenous activity) Diet: regular Follow up with: PEDRO LUIS CORONADO MD [Primary Care Provider] - 3-5 Days Prescriptions: ALBUTEROL Inhaler [ProAir HFA Inhaler] 2 puff IH QID PRN #1 unit PRN Reason: Shortness Of Breath ALBUTEROL NEB's [Proventil 0.083% NEBS] 2.5 mg IH Q4HRT PRN #7 day PRN Reason: Shortness Of Breath Levofloxacin [Levaquin] 750 mg PO QDAY #5 day methylPREDNISolone [Medrol Dose [place]] 1 dose PO DAILY #1 pack
[2017-01-16 16:44] VITALS: BP 155/82
== END 2017-01-16 18:30 | disposition home or self-care (01) | DRG 189 ==
LOC: ED 09:36 → 3A 16:20
PROVIDERS: ADMIT Internal Medicine; ATTEND Internal Medicine
PROC: 4A033R1 Measurement of Arterial Saturation, Peripheral, Percutaneous Approach (ICD-10-PCS; principal; 2017-01-14)
DX: J96.01 Acute respiratory failure with hypoxia (principal); J45.902 Unspecified asthma with status asthmaticus; E87.2 Acidosis; R65.10 Systemic inflammatory response syndrome (SIRS) of non-infectious origin without acute organ dysfunction; J45.901 Unspecified asthma with (acute) exacerbation; E11.8 Type 2 diabetes mellitus with unspecified complications; E87.5 Hyperkalemia; G89.29 Other chronic pain; M54.5 Low back pain; I10 Essential (primary) hypertension; Z82.49 Family history of ischemic heart disease and other diseases of the circulatory system
CPT/HCPCS: 36415; 71010; 71275; 74177; 80048; 80053; 80074; 81001; 82140; 82550; 82553; 82803; 82962; 83036; 83735; 83880; 84484; 85007; 85025; 85027; 85379; 85610; 85730; 87040; 87086; 93005; 93010; 93970; 94640; 94760; 96360; 96361; J1630; J1650; J1815; J1956; J2543; J2920; J2930; J3370; J7030; J7040; Q9967

== ENCOUNTER 2017-03-30 00:44 | Emergency (ER) | payer MEDICARE ==
[2017-03-30 01:42] VITALS: BP 134/74
--- NOTE | 2017-03-30 02:44 | XRay Report ---
FINAL REPORT EXAM: XR CHEST ROUTINE 2V HISTORY: AMBROSE TECHNIQUE: Two views of the chest were submitted. FINDINGS: The heart size and mediastinum appear normal. The lungs are clear. Pleural fluid is not seen. There is a small hiatal hernia at the GE junction. The skeletal structures reveal multilevel disc degeneration in the thoracic spine IMPRESSION: No active chest disease. Small hiatal hernia.
== END 2017-03-30 08:08 | disposition left against medical advice (07) ==
LOC: ED 00:44
DX: J45.909 Unspecified asthma, uncomplicated (principal); Z53.21 Procedure and treatment not carried out due to patient leaving prior to being seen by health care provider
CPT/HCPCS: 71046